=== PATIENT | female | born 1970 | race African-American/Black ===

== ENCOUNTER 2020-07-10 08:55 | Emergency (ER) | payer OTHER ==
[~2020-07-10] VITALS: Ht 177.8 cm; Wt 124.7 kg
[2020-07-10 08:56] VITALS: Ht 177.8 cm; Wt 124.7 kg
[2020-07-10 10:55] VITALS: BP 136/75
== END 2020-07-10 10:55 | disposition home or self-care (01) ==
LOC: ED 08:55
DX: U07.1 COVID-19 (principal); J45.909 Unspecified asthma, uncomplicated; D89.89 Other specified disorders involving the immune mechanism, not elsewhere classified; E66.9 Obesity, unspecified; Z68.39 Body mass index [BMI] 39.0-39.9, adult